=== PATIENT | female | born 1945 | race Caucasian/White ===

== ENCOUNTER 2023-11-27 09:49 | Outpatient (RCR) | payer MEDICARE, OTHER, SELFPAY | END 2023-12-25 23:59 | disposition home or self-care (01) | LOC: CR 09:49 | PROVIDERS: PCP Internal Medicine; Visit Provider Internal Medicine Cardiovascular Disease | DX: I21.3 ST elevation (STEMI) myocardial infarction of unspecified site (principal) | CPT/HCPCS: S9472 ==